=== PATIENT | male | born 1990 | race Caucasian/White ===

== ENCOUNTER 2017-04-25 19:07 | Emergency (ER) | payer OTHER ==
[~2017-04-25] VITALS: Ht 185.4 cm; Wt 80.0 kg
[2017-04-25] MEDS ORDERED: SODIUM CHLORIDE 0.9% 1,000 ML IV ONE (22:45)
[2017-04-25] MEDS ORDERED: KETOROLAC 30MG/ML VIAL IV ONE (22:45)
[2017-04-25 23:26] VITALS: BP 129/48
== END 2017-04-26 00:11 | disposition home or self-care (01) ==
LOC: ER 22:15
DX: R51 Headache (principal); F41.9 Anxiety disorder, unspecified; R20.0 Anesthesia of skin; J45.909 Unspecified asthma, uncomplicated; Z90.89 Acquired absence of other organs
CPT/HCPCS: 96360; 99284; J7030